=== PATIENT | female | born 1945 | race Caucasian/White ===

== ENCOUNTER → 2016-08-22 | Outpatient (CLI) | payer MEDICARE, BC ==
[~2016-08-22] MED LIST: ACTOS30 MG PO; ADVIL200 M2 PO; ALEVE220 MG PO; B COMPLEX1 EACH PO; CALCIUM 600 +1 EAC7 PO; CINNAMON PLUS1 EACH PO; COQ-10100 MG PO; FISH OIL 1,0001 EAC1 PO; FLEXERIL10 MG PO; GLUCOPHAGE1000 MG PO; HYZAAR 50-12.51 EACH PO; MAGNESIUM250 MG PO; PAIN RELIEVER500 MG PO; ROXICODONE 5MG (5 MG PO; THERA-VITE W/ B1 TAB PO; VITAMIN D35000 UNI1 PO
--- NOTE | ~2016-08-22 | ESTC ---
Cardiac Perfusion Imaging Demographics Patient Name MARCIANO Milner Gender Female Patient Number [id number] Race Visit Number [id number] Ethnicity Corporate ID Room Number Accession Number [id number] Height Date of 1945 Weight Age 70 year(s) BSA Referring Physician Ashli Dominguez Interpreting Ashli Date of study 08/22/2016 Physician Alberto Supervising /RADHA GARCIAS Technologist Marion Dominguez Ordering Physician Ashli Gordillo [place] Solo Dominguez master technician RVT Stress ECG Reading Ahsli Nurse Proplalo Stoll RN Physician Alberto Procedure Procedure Type: Nuclear Stress Test:Cardiolite Stress Test Procedure Start time: 08/22/2016 09:30 Indications: Pre surgical clearance. Risk Factors The patient risk factors include:obesity, physical activity, treated hypertension and orally-treated diabetes mellitus. Conclusions Summary Perfusion Images: The overall quality of the study is fair, due to gastrointestinal tracer uptake. There is no evidence of abnormal lung activity. The right ventricle is not visualized and cannot be assessed. Stress SPECT images demonstrate homogenous tracer distribution throughout the myocardium except for a small size mild decrease uptake in the area involving the mid lateral wall which appears worse at rest images with preserved wall motion likely due to artifact. Gated SPECT imaging reveals normal myocardial thickening and wall motion. The left ventricular ejection fraction was calculated to be >70%. Impression ECG portion of stress test is clinically negative for ischemia by diagnostic criteria. Myocardial perfusion imaging is probably normal. Stress SPECT images demonstrate homogenous tracer distribution throughout the myocardium except for a small size mild decrease uptake in the area involving the mid lateral wall which appears worse at rest images with preserved wall motion likely due to artifact. Overall left ventricular systolic function was normal without regional wall motion abnormalities. There are no previous studies for comparison . Stress Protocols Resting ECG Sinus rhythm, Poor R wave progression in anterior leads, non specific T wave abnormality Pre-stress physical exam: Patient assessed by Dr Martins prior to testing. Predicted HR: 148 bpm ECG Findings No ECG changes suggestive of ischemia. Arrhythmias Rare isolated PVCs during recovery Symptoms Headache, chest discomfort Stress Interpretation ECG portion of stress test is negative for ischemia by diagnostic criteria. Imaging Results Summed scores - Summed stress score: 12 - Summed rest score: 18 - Summed difference score: -6 Stress ejection Ejection fraction:84 % EDV :80 ml ESV :13 ml Stroke volume :67 ml LV mass :105 gr Imaging Protocols Rest Stress Isotope:Tc99m Sestamibi IV Isotope: Tc99m Sestamibi IV Isotope dose:12.1 mCi Isotope dose:35.6 mCi Date:08/22/2016 08:00 Date:08/22/2016 09:50 Technique: SPECT Technique: Gated Supine SPECT Supine Scan Time:45-60 minutes post Scan Time:45-60 minutes post injection injection Procedure Medications - Regadenoson (Lexiscan) 0.4 mg IV over 10-15 sec. I.V. 0.4 mg. Medical History Admission Data Admission date: 08/22/2016 Admission Time: 07:09 Hospital Status: Outpatient. Signatures dtt: ALBERTO MARTINS dtd: 08/22/16 0930 Physician Self Edit
== END | disposition disaster alternative care site (69) ==
LOC: GRAD 07:09
DX: M54.5 Low back pain (principal); R94.31 Abnormal electrocardiogram [ECG] [EKG]; I10 Essential (primary) hypertension
CPT/HCPCS: A9500; J2785

== ENCOUNTER 2016-09-03 08:38 | Observation (INO) | payer MEDICARE, BC ==
[~2016-09-03] VITALS: Ht 162.6 cm; Wt 97.9 kg
--- NOTE | ~2016-09-03 | OR ---
PATIENT'S NAME: KAREN TARIQ [facility] AGE: 70 Y [address] ROOM: [place] [address] LOCATION: [facility] ADMIT DATE: 09/03/2016 OR/Procedure Report DISCHARGE DATE: FAMILY PHYSICIAN: Maikel Larry DO ATTENDING PHYSICIAN: Miguelangel Fuentes SURGEON: Miguelangel Fuentes MD PRODUCTION LINE: DATE OF PROCEDURE: 09/03/2016 PREOPERATIVE DIAGNOSES: 1. Lumbar degenerative disk disease. 2. Lumbar spinal stenosis. 3. Lumbar neurogenic claudication. 4. Low back pain. POSTOPERATIVE DIAGNOSES: 1. Lumbar degenerative disk disease. 2. Lumbar spinal stenosis. 3. Lumbar neurogenic claudication. 4. Low back pain. PROCEDURE PERFORMED: Lumbar laminectomy of L2 with decompression of the L2-3 interspace. WAVE SOLDERING MACHINE OPERATOR: RAMANA Caballero ANESTHESIA: General. ESTIMATED BLOOD LOSS: 25 mL. COMPLICATIONS: None. SPECIMENS: None. FINDINGS: Severe stenosis, L2-3, bulging disk contained within ligament. No extrusion. OPERATIVE INDICATIONS: The patient is a 70-year-old female with symptomatic spinal stenosis. She had failed conservative treatment and was offered surgery in the form of a lumbar decompression. After details, risks, benefits, and options were explained, she freely consented to surgery. OPERATIVE NARRATIVE: After the patient was correctly identified and operative site initialed, she was taken back to the operating room and placed in the supine position. After general anesthesia was induced, she was placed in the PATIENT'S NAME: KAREN TARIQ [facility] AGE: 70 Y [address] ROOM: [place] [address] LOCATION: [facility] ADMIT DATE: 09/03/2016 OR/Procedure Report DISCHARGE DATE: FAMILY PHYSICIAN: Maikel Larry DO ATTENDING PHYSICIAN: Miguelangel Fuentes prone position on the Chon frame with all bony prominences well padded and protected. The back was prepped and draped in the usual sterile fashion. A time-out was taken to verify the patient and the procedure. 10 mL of 0.25% Marcaine with epinephrine was injected in line with the incision. A 10-blade was used to make a midline incision over the operative levels. Dissection was taken down through skin and subcutaneous tissue with electrocautery. The fascia was opened in the midline, and subperiosteal dissection was performed to expose the posterior elements. A Kerrison was placed on the lamina at L2-3 and verified at the correct level. The Leksell rongeur was used to take down the inferior half of the spinous process and to thin the lamina. A high-speed bur was used then to continue thinning the lamina. The epidural space was entered with Kerrison, and the laminectomy was completed. The central and lateral recesses, which were very stenotic from hypertrophied osteophytes and facet joints, were resected. The foramen were decompressed directly and probed freely following decompression. The wound was irrigated and dried. There was no bleeding. It was closed in layers with #1 Vicryl on the fascia, 0 Vicryl on the subcutaneous tissue, and then cony on the skin. Sterile dressing was applied, and the patient was awakened from anesthesia and taken to the recovery room in stable condition. MD GAYLE JACOB/jayashree /[id number] d: 09/03/16 1351 t: 09/14/16 1227, OPERATIVE SUMMARY
--- NOTE | ~2016-09-03 | DS ---
PATIENT'S NAME: KAREN TARIQ [facility] AGE: 70 Y [address] ROOM: [place] [address] LOCATION: [facility] ADMIT DATE: 09/03/2016 Discharge Summary DISCHARGE DATE: 09/05/2016 FAMILY PHYSICIAN: Maikel Larry DO ATTENDING PHYSICIAN: Miguelangel Fuentes ADMITTING DIAGNOSES: 1. Lumbar degenerative disk disease. 2. Lumbar spinal stenosis. 3. Lumbar neurogenic claudication. DISCHARGE DIAGNOSES: 1. Lumbar degenerative disk disease. 2. Lumbar spinal stenosis. 3. Lumbar neurogenic claudication. PROCEDURES PERFORMED THIS HOSPITALIZATION: Lumbar laminectomy of L2, decompression of the L2-L3 interspace. CONSULTATIONS: Primary Care Physician and Physical Therapy. ADMITTING HISTORY AND PHYSICAL: Briefly, this is a 70-year-old female with symptomatic spinal stenosis. She had failed conservative treatment. She was offered surgery in the form of a lumbar decompression. HOSPITAL COURSE: The patient was admitted through same-day surgery and underwent the aforementioned surgical procedure. She was transferred from recovery room to the [address] [place] [id number] in stable condition. She recovered with stable vital signs. She was gradually mobilized with physical therapy. Her pain was initially controlled with intravenous medications, converted over to oral medicines. She was doing well by her third hospital day and was discharged home in stable condition with the following instructions: Activity is light. She is to wear her brace when she is out of bed and restrict her to lifting 5 pounds close to her body using good posture. She will restart her home medicines with the addition of oxycodone 5 mg when needed for pain relief. She is to keep her dressing clean, dry, and intact. She will follow up with me in the clinic in 10 days' time. All of her questions were answered prior to discharge. MD GAYLE JACOB/jayashree PATIENT'S NAME: KAREN TARIQ [facility] AGE: 70 Y [address] ROOM: [place] [address] LOCATION: [facility] ADMIT DATE: 09/03/2016 Discharge Summary DISCHARGE DATE: 09/05/2016 FAMILY PHYSICIAN: Maikel Larry DO ATTENDING PHYSICIAN: Miguelangel Fuentes /[id number] d: 09/05/[id number] t: 09/14/16 1230, DISCHARGE SUMMARY
--- NOTE | ~2016-09-03 | HP ---
PATIENT'S NAME: KAREN TARIQ [facility] AGE: 70 Y [address] ROOM: [id number] [place], [place] [address] LOCATION: [facility] ADMIT DATE: 09/03/2016 History & Physical DISCHARGE DATE: FAMILY PHYSICIAN: Maikel Larry DO ATTENDING PHYSICIAN: Miguelangel Fuentes DATE OF SERVICE: 09/03/2016 CHIEF COMPLAINT: Low back pain. HISTORY OF PRESENT ILLNESS: The patient is a 70-year-old, , white female who was admitted to the care of Dr. Miguelangel Fuentes today for end-stage DJD of the back. The patient was admitted for a lumbar laminectomy today at the level of L2. When I see her, she is postop status on 3 , doing well, not complaining of chest pain, shortness of breath, nausea, vomiting, or problems with pain postop. I told her I would follow her medically. She understands, her present for the interview along with daughter. CURRENT MEDICATIONS: 1. Metformin 1000 mg b.i.d. 2. Actos 30 mg a day. 3. Hyzaar 50/12.5 one daily. 4. Ibuprofen 200 as needed. 5. Tylenol as needed. 6. Multivitamins. 7. Winslow-3 fatty acids 1000 mg daily. 8. Mag-Ox 250 mg daily. 9. Calcium carbonate with vitamin D daily. 10. Cholecalciferol (vitamin D3) 5000 units per day. 11. Ubidecarenone 100 mg. 12. CoQ10 100 mg a day. 13. Cinnamon Bark 1 daily. ALLERGIES TO MEDICATIONS: No known drug allergies. SOCIAL HISTORY: Does not smoke. FAMILY HISTORY: Negative for problems with general anesthesia or bleeding disorder. PREVIOUS OPERATIONS: PATIENT'S NAME: KAREN TARIQ [facility] AGE: 70 Y [address] ROOM: [facility] [place] [place], [place] [address] LOCATION: [facility] ADMIT DATE: 09/03/2016 History & Physical DISCHARGE DATE: FAMILY PHYSICIAN: Maikel Larry DO ATTENDING PHYSICIAN: Miguelangel Fuentes Status post appendectomy, hysterectomy partial, and cholecystectomy. REVIEW OF SYSTEMS: Positive for diabetes mellitus, type 2; hypertension, essential; exogenous obesity; lumbar back pain; obstructive sleep apnea. Otherwise, see nurse's database form and preop history and physical. REVIEW OF SYSTEMS: HEENT: She has had no recent change in vision, sore throat, or earache. ENDOCRINE: She is type 2 diabetic, treated with diet alone and oral medication. Not been on insulin before. LUNGS: No history of asthma. HEART: As mentioned, no recent chest pain or palpitations or VT. GI: No recent nausea, vomiting, diarrhea, change in bowel habits, or melena. : No dysuria, frequency. EXTREMITIES AND SPINE: As mentioned. NEUROLOGIC: No history of seizure or syncope in the past. SKIN: No recent rashes. MENTAL STATUS: No recent depression or anxiety. PHYSICAL EXAMINATION: GENERAL: Christy-haired female, lying in bed, in no apparent distress. She is oriented to person, place, and time. HEENT: Shows pupils react to light. TMs not visualized. Posterior pharynx is clear. NECK: Unremarkable. Thyroid not enlarged. LUNGS: Clear without wheeze or rub. HEART: No murmur, gallop, or rub. BREASTS: Not done. ABDOMEN: Soft with no point tenderness or mass. PELVIC AND RECTAL: Not done. MUSCULOSKELETAL: I did not check her back incision. EXTREMITIES: Unremarkable, just trace edema. Pulses intact throughout. NEUROLOGIC: Cranial nerves intact. No lateralizing signs. Mental status, normal postop cognition. ASSESSMENT: 1. Low back pain, lumbar. 2. Status post lumbar laminectomy, L2 today, per Dr. Fuentes. 3. Diabetes mellitus type 2, treated with oral agents and diet. 4. Exogenous obesity. 5. Obstructive sleep apnea by history. 6. Hypertension, essential. PLAN: PATIENT'S NAME: KAREN TARIQ [facility] AGE: 70 Y [address] ROOM: [place] [address] LOCATION: [facility] ADMIT DATE: 09/03/2016 History & Physical DISCHARGE DATE: FAMILY PHYSICIAN: Maikel Larry DO ATTENDING PHYSICIAN: Miguelangel Fuentes Follow daily. Further treatment as indicated. LUIS ANGEL HANKINS MD INLAYER SILVER/modl /[id number] D: [id number] T: [id number] HISTORY & PHYSICAL
[~2016-09-03 08:38] MED LIST changes: -FLEXERIL10 MG PO; -ROXICODONE 5MG (5 MG PO
[2016-09-05] MEDS ORDERED: FLEXERIL10 MG PO (11:45)
[2016-09-05] MEDS ORDERED: ROXICODONE 5MG (5 MG PO (11:46)
== END 2016-09-05 13:45 | disposition disaster alternative care site (69) ==
LOC: GSDC 08:38 → UNDOADMIN 08:38 → G3N 08:38 → EDSTATUS 14:00 → G3N 14:02 → GSDC 09-04 15:05 → G3N 09-04 15:05
PROVIDERS: ADMIT Orthopaedic Surgery Orthopaedic Surgery of the Spine
PROC: 00NY0ZZ Release Lumbar Spinal Cord, Open Approach (ICD-10-PCS; principal; 2016-09-03)
DX: M48.06 Spinal stenosis, lumbar region (principal); M51.16 Intervertebral disc disorders with radiculopathy, lumbar region; I10 Essential (primary) hypertension; E11.9 Type 2 diabetes mellitus without complications; E07.9 Disorder of thyroid, unspecified; G47.33 Obstructive sleep apnea (adult) (pediatric); E66.09 Other obesity due to excess calories; Z68.36 Body mass index [BMI] 36.0-36.9, adult; Z90.49 Acquired absence of other specified parts of digestive tract; Z90.710 Acquired absence of both cervix and uterus; Z79.899 Other long term (current) drug therapy
CPT/HCPCS: G0378; G8978; G8979; G8980; G8987; G8988; G8989; J0131; J0171; J0690; J1040; J1100; J1885; J2250; J2405; J3010; J3480; J7030